=== PATIENT | female | born 1970 | race Caucasian/White ===

== ENCOUNTER 2016-12-05 11:13 | Emergency (ER) | payer OTHER | END 2016-12-05 13:53 | disposition left against medical advice (07) | LOC: UCCORT 11:13 | DX: M25.551 Pain in right hip (principal); Z53.21 Procedure and treatment not carried out due to patient leaving prior to being seen by health care provider ==

== ENCOUNTER 2018-11-26 05:53 | Day surgery (SDC) | payer OTHER ==
[~2018-11-26 05:53] MED LIST: Buffered Lidocaine 1% SYRIN* 1 ML/SYRINGE INTRADERM ONE
[2018-11-26] MEDS ORDERED: Lactated Ringers 1000 ML Bag* 1,000 ML IV SCH (06:00)
[2018-11-26] MEDS ORDERED: Acetaminophen TAB* 325 MG PO ONE (06:00)
[2018-11-26] MEDS ORDERED: Acetaminophen TAB* 325 MG ONE (06:29)
[2018-11-26] MEDS ORDERED: fentaNYL* 50 MCG/ML 2 ML VIAL (100 MCG VIAL) ONE (07:21)
[2018-11-26] MEDS ORDERED: Midazolam* 1 MG/ML 2 ML VIAL (2 MG) ONE (07:21)
[2018-11-26] MEDS ORDERED: Scopolamine 1.5 mg* PATCH ONE (07:29)
[2018-11-26] MEDS ORDERED: Famotidine IV* 10 MG/ML 2 ML (20 mg) ONE (07:29)
[2018-11-26 07:30] LABS: Hematocrit 41 % (33-41); Hemoglobin 14.1 g/dL (12.0-16.0); Mean Corpuscular HGB Conc 35 g/dL (31-36); Mean Corpuscular Hemoglobin 31 pg (27-31); Mean Corpuscular Volume 89 fL (80-97); Mean Platelet Volume 7.7 fL (7.4-10.4); Platelet Count 211 10^3/uL (150-450); Red Cell Distribution Width 13 % (10.5-15)
[2018-11-26] MEDS ORDERED: Ketorolac INJ* 30 MG/ML 1 ML VIAL ONE (07:48)
[2018-11-26] MEDS ORDERED: Ondansetron INJ* 2 MG/ML VIAL ONE (07:48)
[2018-11-26] MEDS ORDERED: Dexamethasone IV* 4 MG/ML 1 ML (4 MG) ONE (07:48)
[2018-11-26] MEDS ORDERED: Propofol* 10 MG/ML 20 ML BTL ONE (07:48)
[2018-11-26] MEDS ORDERED: Naloxone* 0.4 MG/ML 1 ML VIAL IV PRN (08:02)
[2018-11-26] MEDS ORDERED: diPHENhydraMINE IV* 50 MG/ML 1 ml VIAL (BENADRYL) IV PRN (08:02)
[2018-11-26] MEDS ORDERED: HYDROcodone/ACETAMIN 5-325 MG* 1 TAB PO PRN ×2 (08:02)
[2018-11-26] MEDS ORDERED: Ondansetron INJ* 2 MG/ML VIAL IV PRN (08:02)
[2018-11-26] MEDS ORDERED: DiMENhydriNATE IV* 50 MG/ML VIAL IV PUSH PRN (08:02)
[2018-11-26] MEDS ORDERED: PROCHLORPERAZINE INJ 5 MG/ML 2 ML VIAL IV PRN (08:02)
[2018-11-26] MEDS ORDERED: fentaNYL* 50 MCG/ML 2 ML VIAL (100 MCG VIAL) IV PRN (08:02)
[2018-11-26 09:31] VITALS: BP 101/66
--- NOTE | 2018-11-26 12:54 | OP ---
DATE OF OPERATION: 11/26/18 - [facility] DATE OF : 74 SURGEON: Juan Rahman MD ANESTHESIOLOGIST: Dr. Oneill. ANESTHESIA: General. PRE-OP DIAGNOSIS: Menorrhagia. POST-OP DIAGNOSIS: Menorrhagia. OPERATIVE PROCEDURE: Hysteroscopy and endometrial ablation using NovaSure. ESTIMATED BLOOD LOSS: Minimal. URINE OUTPUT: Minimal. IV FLUIDS: 1000 cc lactated Ringer's. MATERIALS TO LAB: None. INDICATIONS: This patient is a 48-year-old 3, para 2, who presented with complaint of persistent heavy periods. The patient was initially started on oral contraceptives, which were very effective at controlling her bleeding. However, recently, she had had thrombotic episodes in her family members, so we needed to discontinue her control pills. She desired then to proceed with an endometrial ablation. An endometrial biopsy performed in the office returned with benign tissue. She was extensively counseled, and a consent was signed. FINDINGS: Normal-appearing uterine cavity with very thin endometrium and no visible lesions. COMPLICATIONS: None. DESCRIPTION OF PROCEDURE: The risks, benefits, and alternatives were described to the patient and informed consent was obtained. The patient was taken to the operating room with IV running where general anesthesia was induced and found to be adequate. The patient was prepped and draped in the normal sterile fashion in the high lithotomy position in Jai stirrups. A time-out was performed. The bladder was emptied with minimal urine. A bimanual examination revealed an anteverted uterus. A bivalve speculum was placed through vagina and a single- tooth tenaculum was placed on the anterior cervix. The uterus was sounded to about 8 cm. The cervix was then gently dilated using Brodie's dilators to a maximum size of about 24. At that time, a hysteroscope was advanced through the cervix and into the uterine cavity without difficulty. There were no visible lesions such as polyps or fibroids. The uterine cavity appeared normal in shape and there was very thin endometrium visible. The hysteroscope was then removed. The uterus was dilated additionally to about a size 26. At that time, a NovaSure ablation device was prepared. This was inserted through the cervix and into the uterine cavity without difficulty. The cavity length was measured at about 4 cm and the width was 3.8 cm. Power was calculated at 84. After a negative cavity assessment, the ablation was performed and lasted for 1 minute 40 seconds. The NovaSure device was then removed. The hysteroscope was readvanced into the uterine cavity and there appeared to be good ablation of all of the visible endometrial cavity. The hysteroscope was then removed. The tenaculum was removed from the cervix. There was good hemostasis after applying some pressure with a sponge stick and using some silver nitrate on the tenaculum site. The speculum was then removed and the patient was returned to the supine position. The patient tolerated the procedure well. Sponge, lap, and needle counts were correct x2. [id number]/CPS #: [id number] [facility]
[2018-11-29] MEDS ORDERED: Scopolamine PATCH Remove* 1 NOTE MISC PATCH OFF ONE (08:04)
== END 2018-11-26 09:59 | disposition home or self-care (01) ==
LOC: OR 05:53
PROVIDERS: ATTEND Obstetrics & Gynecology
DX: N92.0 Excessive and frequent menstruation with regular cycle (principal); E06.3 Autoimmune thyroiditis; E03.9 Hypothyroidism, unspecified
CPT/HCPCS: 36415; 81025; 85027; A9270-GY; J1100; J1885; J2250; J2405; J2704; J3010